=== PATIENT | male | born 2000 | race Caucasian/White ===

== ENCOUNTER 2024-09-18 03:10 | Emergency (ER) | payer BC ==
[~2024-09-18] VITALS: Ht 188 cm; Wt 81.6 kg
[2024-09-18] MEDS ORDERED: HALOPERIDOL LACTATE INJ 5 MG/ML VIAL ONE (03:29)
[2024-09-18] MEDS ORDERED: ONDANSETRON HCL/PF 4 MG/2 ML VIAL ONE (03:29)
[2024-09-18] MEDS ORDERED: MORPHINE SULFATE INJ 4 MG/ML DISP.SYRIN ONE (03:30)
[2024-09-18] MEDS: ONDANSETRON HCL/PF 4 MG/2 ML VIAL IVP ONE (03:36)
[2024-09-18] MEDS: MORPHINE SULFATE INJ 2 MG/ML DISP.SYRIN IV ONE (03:38)
[2024-09-18] MEDS: IV NS 0.9% 1,000 ML BAG IV ONE (03:40)
[2024-09-18] MEDS: HALOPERIDOL LACTATE INJ 5 MG/ML VIAL IM ONE (03:40)
[2024-09-18 03:41] LABS: BASOPHILS # (AUTO) 0.1 K/uL (0.0-0.2); BASOPHILS % (AUTO) 0.5 % (0.0-2.0); EOSINOPHILS % (AUTO) 0.1 % (0.0-6.0); HEMATOCRIT 44 % (39-51); HEMOGLOBIN 15.5 g/dL (13.5-17.5); LYMPHOCYTES # (AUTO) 0.3 K/uL (0.8-4.8); LYMPHOCYTES % (AUTO) 2.1 % (20.0-44.0); MEAN CORPUSCULAR HEMOGLOBIN 32 PG (26.0-33.0); MEAN CORPUSCULAR HGB CONC 35 g/dl (31.0-36.0); MEAN CORPUSCULAR VOLUME 91 fL (80-96); MONOCYTES # (AUTO) 0.6 K/uL (0.1-1.30); MONOCYTES % (AUTO) 4.4 % (2.0-12.0); NEUTROPHILS # (AUTO) 12.4 K/uL (1.8-8.9); NEUTROPHILS % (AUTO) 92.9 % (43.0-81.0); PLATELET COUNT (AUTO) 196 K/uL (150-450); RED BLOOD CELL COUNT(AUTO) 4.88 MIL/uL (4.5-6.0); RED CELL DISTRIBUTION WIDTH 12.7 % (11.5-15.0); WHITE BLOOD COUNT (AUTO) 13.4 K/uL (4.3-11.0)
[2024-09-18 03:46] LABS: CALCIUM, SERUM 9.4 mg/dL (8.5-10.1); CREATININE 1.1 mg/dL (0.6-1.3); POTASSIUM 4.4 mmol/L (3.5-5.1)
[2024-09-18 03:52] LABS: BILIRUBIN,DIRECT 0.5 mg/dL (0.0-0.2); BILIRUBIN,TOTAL 2.1 mg/dL (0.2-1.0)
[2024-09-18] MEDS ORDERED: IOHEXOL-300 100 ML VIAL IV ONE (04:12)
[2024-09-18] MEDS ORDERED: ONDA4TAB5 PO (05:34)
[2024-09-18] MEDS ORDERED: DICY10CA37 PO (05:34)
[2024-09-18 05:48] VITALS: BP 120/77; TEMP 97.9; O2SAT 98
== END 2024-09-18 05:48 | disposition home or self-care (01) ==
LOC: ER 03:18
DX: K50.90 Crohn's disease, unspecified, without complications (principal); R10.9 Unspecified abdominal pain; R11.2 Nausea with vomiting, unspecified
CPT/HCPCS: 99285; 74177; 96374; 96361; 96375; 93005; 85025; 80048; 83690; 80076; 36415; 96372; J1630; J2270; J2405; J7030 ×2; Q9967